=== PATIENT | male | born 1940 | race Two or more races ===

== ENCOUNTER → 2017-05-11 09:16 | Outpatient (CLI) | payer OTHER | END | disposition home or self-care (01) | LOC: LAB 09:16 | DX: D50.8 Other iron deficiency anemias (principal); N39.0 Urinary tract infection, site not specified; E78.4 Other hyperlipidemia; E11.9 Type 2 diabetes mellitus without complications; E07.89 Other specified disorders of thyroid; N40.0 Benign prostatic hyperplasia without lower urinary tract symptoms ==

== ENCOUNTER 2017-07-09 09:57 | Outpatient (CLI) | payer OTHER | END 2017-07-09 11:13 | disposition home or self-care (01) | LOC: RAD 09:57 → LAB 09:57 | DX: I50.89 Other heart failure (principal) ==

== ENCOUNTER → 2017-12-25 09:12 | Outpatient (CLI) | payer OTHER | END | disposition home or self-care (01) | LOC: LAB 09:12 | DX: D53.8 Other specified nutritional anemias (principal); N39.0 Urinary tract infection, site not specified; I11.9 Hypertensive heart disease without heart failure; E78.4 Other hyperlipidemia; E11.9 Type 2 diabetes mellitus without complications; E07.89 Other specified disorders of thyroid ==

== ENCOUNTER 2018-05-19 09:37 | Outpatient (CLI) | payer OTHER | END 2018-05-19 11:31 | disposition home or self-care (01) | LOC: LAB 09:37 | DX: I11.9 Hypertensive heart disease without heart failure (principal); E06.5 Other chronic thyroiditis; E88.89 Other specified metabolic disorders; N40.0 Benign prostatic hyperplasia without lower urinary tract symptoms; Z12.11 Encounter for screening for malignant neoplasm of colon; N39.0 Urinary tract infection, site not specified; E11.9 Type 2 diabetes mellitus without complications; K87 Disorders of gallbladder, biliary tract and pancreas in diseases classified elsewhere ==

== ENCOUNTER → 2018-10-11 08:39 | Outpatient (CLI) | payer OTHER | END | disposition home or self-care (01) | LOC: LAB 08:39 | DX: N39.0 Urinary tract infection, site not specified (principal); I11.0 Hypertensive heart disease with heart failure; E78.49 Other hyperlipidemia; N40.0 Benign prostatic hyperplasia without lower urinary tract symptoms; D50.8 Other iron deficiency anemias; M10.00 Idiopathic gout, unspecified site ==

== ENCOUNTER 2018-10-25 09:22 | Outpatient (CLI) | payer OTHER ==
[~2018-10-25] VITALS: Ht 175.3 cm; Wt 98.9 kg
== END 2018-10-25 09:40 | disposition home or self-care (01) ==
LOC: OFIC 805 09:22
DX: H81.49 Vertigo of central origin, unspecified ear (principal); H81.13 Benign paroxysmal vertigo, bilateral

== ENCOUNTER 2018-11-18 07:33 | Outpatient (CLI) | payer OTHER | END 2018-11-18 07:50 | disposition home or self-care (01) | LOC: SONOGRAMA 07:33 | DX: N40.1 Benign prostatic hyperplasia with lower urinary tract symptoms (principal); R31.1 Benign essential microscopic hematuria; N20.0 Calculus of kidney ==

== ENCOUNTER 2019-04-22 07:23 | Outpatient (CLI) | payer OTHER | END 2019-04-22 07:31 | disposition home or self-care (01) | LOC: LAB 07:23 | DX: D50.8 Other iron deficiency anemias (principal); N39.0 Urinary tract infection, site not specified; I11.9 Hypertensive heart disease without heart failure; E78.49 Other hyperlipidemia; N40.0 Benign prostatic hyperplasia without lower urinary tract symptoms; E11.9 Type 2 diabetes mellitus without complications; M10.9 Gout, unspecified ==

== ENCOUNTER → 2020-05-11 | Outpatient (CLI) | payer OTHER | END | disposition home or self-care (01) | LOC: NUCLEAR 07:00 | PROVIDERS: ATTEND Internal Medicine Cardiovascular Disease | DX: I20.8 Other forms of angina pectoris (principal); I11.9 Hypertensive heart disease without heart failure; E78.49 Other hyperlipidemia | CPT/HCPCS: 78452; 93017; A9500; J0153 ==

== ENCOUNTER 2020-10-15 09:05 | Outpatient (CLI) | payer OTHER | END 2020-10-15 09:07 | disposition home or self-care (01) | LOC: TOM 09:05 | PROVIDERS: ATTEND Internal Medicine | DX: Q61.02 Congenital multiple renal cysts (principal); R10.84 Generalized abdominal pain; R10.30 Lower abdominal pain, unspecified; K57.90 Diverticulosis of intestine, part unspecified, without perforation or abscess without bleeding ==

== ENCOUNTER 2021-06-28 08:53 | Outpatient (CLI) | payer OTHER | END 2021-06-28 08:55 | disposition home or self-care (01) | LOC: NUCLEAR 08:53 | PROVIDERS: ATTEND Internal Medicine Cardiovascular Disease | DX: I10 Essential (primary) hypertension (principal) ==

== ENCOUNTER 2022-11-10 12:52 | Outpatient (CLI) | payer OTHER | END 2022-11-10 12:54 | disposition home or self-care (01) | LOC: LAB 12:52 | DX: R10.30 Lower abdominal pain, unspecified (principal) ==

== ENCOUNTER 2022-11-14 09:52 | Outpatient (CLI) | payer OTHER | END 2022-11-14 09:55 | disposition home or self-care (01) | LOC: TOM 09:52 | PROVIDERS: ATTEND Internal Medicine Geriatric Medicine | DX: J84.10 Pulmonary fibrosis, unspecified (principal) ==